=== PATIENT | male | born 1955 | race Caucasian/White ===

== ENCOUNTER 2019-03-10 00:33 | Inpatient (IN) | payer OTHER ==
[2019-03-10] MEDS ORDERED: VANCOMYCIN 1 GM in IV D5W 250 ML IV ONE (01:00)
[2019-03-10] MEDS ORDERED: VANCOMYCIN 1 GM VIAL ONE (01:05)
[2019-03-10] MEDS ORDERED: MAGNESIUM HYDROXIDE 30 ML UDC PO PRN (01:30)
[2019-03-10] MEDS ORDERED: ZOLPIDEM TARTRATE 5 MG TABLET PO PRN (01:30)
[2019-03-10] MEDS ORDERED: ONDANSETRON HCL/PF 4 MG/2 ML VIAL IVP PRN (01:30)
[2019-03-10] MEDS ORDERED: ACETAMINOPHEN 325 MG TABLET PO PRN (01:30)
[2019-03-10] MEDS ORDERED: Z GUARD REMEDY 2 OZ OINT TP PRN (01:30)
[2019-03-10] MEDS ORDERED: MAG HYDROX/AL HYDROX/SIMETH 30 ML UDC PO PRN (01:30)
[2019-03-10] MEDS ORDERED: POTASSIUM CHLORIDE 20 MEQ TAB.PRT.SR PO ONE (02:34)
[2019-03-10] MEDS ORDERED: IV NS 0.9% 1,000 ML BAG IV SCH (03:00)
[2019-03-10] MEDS ORDERED: IV NS 0.9% 1,000 ML IV PRN (03:00)
[2019-03-10] MEDS ORDERED: POTASSIUM CHLORIDE 20 MEQ TAB.PRT.SR PO SCH (03:00)
[2019-03-10] MEDS: IV NS 0.9% 1,000 ML IV SCH ×3 (03:07→23:37)
[2019-03-10] MEDS ORDERED: CLINDAMYCIN 900 MG/6 ML VIAL ONE (04:14)
[2019-03-10] MEDS ORDERED: CLINDAMYCIN IV RTU IN D5W 900 MG/50 ML PIGGYBACK IV SCH (05:00)
[2019-03-10] MEDS ORDERED: CLINDAMYCIN 900 MG in IV NS 0.9% 50 ML IV SCH (05:00)
[2019-03-10] MEDS: HYDROCODONE/APAP 5/325MG 1 EACH TABLET PO PRN ×3 (06:16→23:56)
[2019-03-10] MEDS: CLINDAMYCIN 900 MG in IV D5W 50 ML IV SCH ×2 (12:50→21:27)
[2019-03-11] MEDS: CLINDAMYCIN 900 MG in IV D5W 50 ML IV SCH ×3 (05:55→21:16)
[2019-03-11] MEDS: IV NS 0.9% 1,000 ML IV PRN (17:54)
[2019-03-11] MEDS ORDERED: TRAMADOL HCL 50 MG TABLET PO PRN (18:30)
[2019-03-11] MEDS: HYDROCODONE/APAP 5/325MG 1 EACH TABLET PO PRN (20:16)
[2019-03-12] MEDS: IV NS 0.9% 1,000 ML IV PRN ×2 (04:26→19:22)
[2019-03-12] MEDS: CLINDAMYCIN 900 MG in IV D5W 50 ML IV SCH ×2 (05:09→13:25)
[2019-03-12] MEDS: CLINDAMYCIN HCL 150 MG CAPSULE PO SCH (21:03)
[2019-03-12] MEDS: HYDROCODONE/APAP 5/325MG 1 EACH TABLET PO PRN (23:04)
[2019-03-13] MEDS: CLINDAMYCIN HCL 150 MG CAPSULE PO SCH ×3 (05:04→20:18)
[2019-03-13] MEDS: IV NS 0.9% 1,000 ML IV PRN ×2 (05:21→19:34)
[2019-03-13] MEDS: HYDROCODONE/APAP 5/325MG 1 EACH TABLET PO PRN ×2 (10:04→20:34)
[2019-03-14] MEDS: HYDROCODONE/APAP 5/325MG 1 EACH TABLET PO PRN ×2 (02:13→10:48)
[2019-03-14] MEDS: CLINDAMYCIN HCL 150 MG CAPSULE PO SCH ×2 (04:47→12:16)
[2019-03-14] MEDS: IV NS 0.9% 1,000 ML IV PRN (05:35)
== END 2019-03-14 13:50 | disposition home or self-care (01) | DRG 383 ==
DX: L03.116 Cellulitis of left lower limb (principal); N17.0 Acute kidney failure with tubular necrosis; E87.1 Hypo-osmolality and hyponatremia; E86.1 Hypovolemia; F17.210 Nicotine dependence, cigarettes, uncomplicated; Z91.14 Patient's other noncompliance with medication regimen; E86.9 Volume depletion, unspecified; F15.10 Other stimulant abuse, uncomplicated; I87.8 Other specified disorders of veins

== ENCOUNTER 2019-11-29 19:23 | Emergency (ER) | payer OTHER ==
[~2019-11-29] VITALS: Ht 170.2 cm; Wt 71.7 kg
[2019-11-29 19:33] VITALS: BP 153/78
== END 2019-11-29 20:09 | disposition home or self-care (01) ==
LOC: ER 19:28
DX: L03.116 Cellulitis of left lower limb (principal); Z60.2 Problems related to living alone

== ENCOUNTER 2022-05-17 16:04 | Emergency (ER) | payer MEDICARE, OTHER ==
[~2022-05-17] VITALS: Ht 170.2 cm; Wt 79.4 kg
--- NOTE | 2022-05-17 16:15 | NUR ---
BIBS C/O LEFT LEG CELLULITIS, WAS WALKING IN [place] 2 DAYS AGO.
--- NOTE | 2022-05-17 16:45 | NUR ---
INTELLIGENCE OPERATIONS SPECIALIST AT BEDSIDE
[2022-05-17 16:50] LABS: BASOPHILS # (AUTO) 0.2 K/uL (0.0-0.2); BASOPHILS % (AUTO) 2.8 % (0.0-2.0); EOSINOPHILS % (AUTO) 4.1 % (0.0-6.0); HEMATOCRIT 43 % (39-51); HEMOGLOBIN 14.7 g/dL (13.5-17.5); LYMPHOCYTES # (AUTO) 2.2 K/uL (0.8-4.8); LYMPHOCYTES % (AUTO) 41.8 % (20.0-44.0); MEAN CORPUSCULAR HGB CONC 34 g/dl (31.0-36.0); MEAN CORPUSCULAR VOLUME 88 fL (80-96); MONOCYTES # (AUTO) 0.4 K/uL (0.1-1.30); MONOCYTES % (AUTO) 7.3 % (2.0-12.0); NEUTROPHILS # (AUTO) 2.3 K/uL (1.8-8.9); PLATELET COUNT (AUTO) 261 K/uL (150-450); RED BLOOD CELL COUNT(AUTO) 4.89 MIL/uL (4.5-6.0); WHITE BLOOD COUNT (AUTO) 5.3 K/uL (4.3-11.0)
[2022-05-17 16:59] LABS: CALCIUM, SERUM 8.7 mg/dL (8.5-10.1); CREATININE 1.1 mg/dL (0.6-1.3); POTASSIUM 3.7 mmol/L (3.5-5.1)
--- NOTE | 2022-05-17 17:16 | NUR ---
U/S TECH AT BEDSIDE
[2022-05-17] MEDS ORDERED: CEPH500C2 PO (17:45)
[2022-05-17] MEDS ORDERED: SULF1TAB48 PO (17:45)
[2022-05-17] MEDS ORDERED: CEFTRIAXONE 1 G VIAL IM ONE (18:00)
--- NOTE | 2022-05-17 18:00 | NUR ---
Patient discharged to home in stable condition. Written and verbal after care instructions given. Patient verbalizes understanding of instruction.
[2022-05-17 19:20] VITALS: BP 135/90
== END 2022-05-17 18:00 | disposition home or self-care (01) ==
LOC: ER 16:15
DX: L03.116 Cellulitis of left lower limb (principal); Z60.2 Problems related to living alone
CPT/HCPCS: 36415; 80048-TC; 85025-TC; 93971-TC